=== PATIENT | female | born 1995 | race Caucasian/White ===

== ENCOUNTER 2017-01-13 19:08 | Emergency (ER) | payer MEDICAID ==
[~2017-01-13] VITALS: Ht 160 cm; Wt 113.4 kg
[2017-01-13 19:43] VITALS: BP_SYST 118
[2017-01-13] MEDS ORDERED: birth control PO (19:52)
[2017-01-13 20:58] LABS: BASOPHILS % (AUTO) 0.2 % (0.0-2.0); EOSINOPHILS % (AUTO) 0.1 % (0.0-4.0); HEMATOCRIT 40.6 % (36-48); HEMOGLOBIN 13.6 g/dL (12.0-16.0); LYMPHOCYTES # (AUTO) 1.8 K/uL (1.0-5.5); LYMPHOCYTES % (AUTO) 12.1 % (20.5-51.5); MEAN CORPUSCULAR HEMOGLOBIN 30 pg (27-31); MEAN CORPUSCULAR HGB CONC 34 % (32-36); MEAN CORPUSCULAR VOLUME 89 fL (79.0-98.0); MONOCYTES # (AUTO) 0.6 K/uL (0.0-1.0); MONOCYTES % (AUTO) 3.9 % (1.7-9.3); NEUTROPHILS # (AUTO) 12.7 K/uL (1.8-7.7); NEUTROPHILS % (AUTO) 83.7 % (40.0-70.0); PLATELET COUNT (AUTO) 268 K/uL (130-430); RED BLOOD CELL COUNT(AUTO) 4.56 MIL/uL (4.2-6.2); RED CELL DISTRIBUTION WIDTH 11.5 % (9.0-15.0); WHITE BLOOD COUNT (AUTO) 15.1 K/uL (4.8-10.8)
[2017-01-13 21:13] LABS: CALCIUM 9.2 mg/dL (8.4-11.0); CREATININE 0.82 mg/dL (0.55-1.30); POTASSIUM 3.5 mmol/L (3.5-5.1)
[2017-01-13] MEDS: NACL 0.9% 1,000 ML IV ONE (21:17)
[2017-01-13] MEDS: ONDANSETRON HCL 4 MG/2 ML VIAL IVP ONE (21:23)
[2017-01-13] MEDS: KETOROLAC TROMETHAMINE 30 MG VIAL IVP ONE (21:24)
[2017-01-13 21:32] LABS: BILIRUBIN,URINE NEGATIVE (NEGATIVE); BLOOD, URINE NEGATIVE (NEGATIVE); CLARITY/URINE SL HAZY (CLEAR); COLOR,URINE YELLOW (YELLOW); GLUCOSE,URINE NEGATIVE (NEGATIVE); KETONES,URINE NEGATIVE (NEGATIVE); LEUKOCYTE ESTERASE ,URINE NEGATIVE (NEGATIVE); NITRITE, URINE NEGATIVE (NEGATIVE); PH,URINE 5.5 (5.0-8.0); PROTEIN URINE TRACE (NEGATIVE); UROBILINOGEN,URINE 0.2 (0.2-1.0)
[2017-01-13 21:33] LABS: ALBUMIN 3.6 g/dL (3.4-4.8); TOTAL BILIRUBIN 0.2 mg/dL (0.0-1.0); TOTAL PROTEIN, SERUM 8.2 g/dL (6.4-8.3)
[2017-01-13 22:16] LABS: BACTERIA,URINE MODERATE /HPF (None Seen); MUCUS,URINE 2+ /LPF (None Seen); RBC,URINE NONE SEEN /HPF (0-3); WBC,URINE 0-3 /HPF (0-3)
[2017-01-13 22:34] VITALS: BP_SYST 128
== END 2017-01-13 22:34 | disposition home or self-care (01) ==
LOC: SED 19:08
DX: S00.93XA Contusion of unspecified part of head, initial encounter (principal); D72.829 Elevated white blood cell count, unspecified; W19.XXXA Unspecified fall, initial encounter; Y93.89 Activity, other specified; Y92.513 Shop (commercial) as the place of occurrence of the external cause; Y99.8 Other external cause status
CPT/HCPCS: 36415; 70450; 80053; 81000; 81025; 85025; 87086; 93005; 96361; 96374; 96375; 99285; J1885; J2405; J7030

== ENCOUNTER 2017-03-06 23:51 | Emergency (ER) | payer MEDICAID ==
[~2017-03-06] VITALS: Ht 160 cm; Wt 107.0 kg
[~2017-03-06 23:51] MED LIST: birth control PO
[2017-03-06 23:53] VITALS: BP_SYST 129
[2017-03-07] MEDS ORDERED: IPRATROPIUM BROM 0.5 MG/2.5 ML VIAL.NEB (ATROVENT) IH ONE (01:30)
[2017-03-07] MEDS ORDERED: LevALBUTEROL HCL 1.25 MG/0.5 ML *CONC.* VIAL.NEB (XOPENEX CONC.) INH ONE (01:30)
[2017-03-07 02:33] VITALS: BP_SYST 120
== END 2017-03-07 02:33 | disposition home or self-care (01) ==
LOC: SED 23:51
DX: R07.89 Other chest pain (principal); R05 Cough
CPT/HCPCS: 93005; 94640; 99283

== ENCOUNTER 2017-08-06 21:34 | Emergency (ER) | payer MEDICAID, OTHER ==
[~2017-08-06] VITALS: Ht 160 cm; Wt 107.5 kg
--- NOTE | 2017-08-06 21:35 | NUR ---
Pt states she does not have chest pain she has chest pressure for one day 1/2, denies SOB, denies cardiac Hx, pt has Hx of anxiety, skin pink and warm, cap refill <3, VS WNL.
--- NOTE | 2017-08-06 21:40 | NUR ---
EKG obtained, EKG given to Dr Alarcon, no new orders receive at this time, pt on stable condiiton , VSS, per Dr Alarcon pt can wait in the waiting room at this time.
[2017-08-06 21:53] VITALS: BP_SYST 120
--- NOTE | 2017-08-06 23:24 | NUR ---
Placed in room 03 . Placed on personnel monitor, blood pressure machine and pulse oximeter. To gown for exam. Side rails up. Report given to SHEMAR Graves.
--- NOTE | 2017-08-06 23:25 | NUR ---
OPENING NOTE Patient states that she feels chest pressure for one day 1/2. She denies any chest pain. nausea. feels like vomiting. Vital signs: BP 115/77; RR23 ; HR 82, O2 96% on RA.
--- NOTE | 2017-08-07 | NUR ---
DR. MARTINEZ AT BEDSIDE, ASSESSING PATIENT.
--- NOTE | 2017-08-07 00:40 | NUR ---
Patient stated she feels nauseous. Zofran given as per order. Will continue to monitor.
[2017-08-07] MEDS ORDERED: ONDANSETRON 4 MG ODT TAB PO ONE (00:45)
[2017-08-07 01:50] VITALS: BP_SYST 120
--- NOTE | 2017-08-07 01:50 | NUR ---
Patient given written and verbal discharge instructions and verbalizes understanding. ER MD discussed with patient the results and treatment provided. Patient in stable condition. ID arm band removed. Rx of Prilosec and Zofran given. Patient educated on pain management and to follow up with PMD. Pain Scale 0/10. Opportunity for questions provided and answered.
== END 2017-08-07 01:50 | disposition home or self-care (01) ==
LOC: SED 21:34
DX: K21.9 Gastro-esophageal reflux disease without esophagitis (principal); F41.9 Anxiety disorder, unspecified
CPT/HCPCS: 71010; 93005; 99284; Q0162

== ENCOUNTER 2024-06-11 07:34 | Emergency (ER) | payer BC, OTHER ==
[~2024-06-11] VITALS: Ht 162.6 cm; Wt 137.4 kg
[~2024-06-11 07:34] MED LIST changes: +ALBU8.5H8 INH; +ESCI20TA PO
[2024-06-11 07:42] VITALS: BP_SYST 138; PULSE 92; RESP 20; TEMP 98.3; O2SAT 98
[2024-06-11] MEDS ORDERED: AMOX500C2 PO (07:50)
[2024-06-11] MEDS ORDERED: PRED20TA PO (07:50)
[2024-06-11] MEDS: prednisoLONE 15 MG/5 ML UDC PO ONE (08:25)
[2024-06-11 08:47] VITALS: BP_SYST 136; PULSE 91; RESP 14; TEMP 96.5; O2SAT 97
== END 2024-06-11 08:15 | disposition home or self-care (01) ==
LOC: SED 07:34
DX: J02.9 Acute pharyngitis, unspecified (principal); R50.9 Fever, unspecified; F41.9 Anxiety disorder, unspecified; Z76.0 Encounter for issue of repeat prescription; Z88.6 Allergy status to analgesic agent; Z88.8 Allergy status to other drugs, medicaments and biological substances; Z79.3 Long term (current) use of hormonal contraceptives; Z79.899 Other long term (current) drug therapy
CPT/HCPCS: 99283